=== PATIENT | female | born 1980 | race Caucasian/White ===

== ENCOUNTER 2025-01-12 00:54 | Day surgery (SDC) | payer BC, SELFPAY ==
[2024-12-28 11:07] VITALS: BMI 37.1
--- OUTSIDE RECORDS SUMMARY | 2025-01-12 00:57 | XMS_ITS | Clinical Summary ---
Author Organization [facility] Address [facility] [place] [address] Care Team Providers Care Compensation And Benefits Administrator Name Role Phone Kevin Clark MD Primary Care Provider Allergies No known active allergies Medications lisinopril 10 MG tablet Take 10 mg by mouth daily. 02/26/2021 Active Active Problems Problem Noted Date Diagnosed Date Closed nondisplaced fracture of intermediate cuneiform of right foot with routine healing, subsequent encounter 03/15/2021 Closed nondisplaced fracture of medial cuneiform of right foot with routine healing, subsequent encounter 03/15/2021 Resolved Problems Problem Noted Date Diagnosed Date Resolved Date Worried well 01/29/2017 05/04/2018 Encounter for preventive health examination 01/14/2010 05/04/2018 Immunizations Immunization Administration Dates Next Due Influenza Adult (Generic) 04/09/2018 Family History Medical History Relation Comments Hypertension Father Stroke Maternal Grandfather No Known Problems Maternal Grandmother Hypertension Mother Breast Cancer Paternal Aunt Cancer Paternal Grandfather Diabetes Paternal Grandmother Hypertension Sister 1 2 sisters Hypertension Sister 2 Relation Status Comments Father Alive Maternal Grandfather Maternal Grandmother Mother Alive Paternal Aunt Alive Paternal Grandfather Paternal Grandmother Sister 1 Alive Sister 2 Alive Social History Tobacco Use Types Packs/Day Years Used Date Smoking Tobacco: Former Cigarettes 0.3 2 Smokeless Tobacco: Never Tobacco Cessation:Counseling Given: Not Answered Alcohol Use Standard Drinks/Week Comments Yes 0 (1 standard drink = 0.6 oz pur e alcohol) OCCASIONAL AUDIT-C Answer Date Recorded Frequency of Alcohol Consumption Monthly or less 05/04/2018 Average Number of Drinks Not on file 018 Frequency of Binge Drinking Not on file 04/22 Comments No Sex and Gender Information Value Date Recorded Sex Assigned at Not on file Legal Sex Female 8:39 PM CDT Gender Identity Not on file Sexual Orientation Not on file Last Filed Vital Signs Vital Sign Reading Time Taken Comments Blood Pressure 126/85 10/19/2022 1:30 PM CDT Pulse 60 10/19/2022 1:30 PM CDT Temperature 36.8 C (98.3 F) 10/19/2022 11:42 AM CDT Respiratory Rate 19 10/19/2022 1:30 PM CDT Oxygen Saturation 99% 10/19/2022 1:30 PM CDT Inhaled Oxygen Concentration - - Weight 97.1 kg (214 lb) 10/19/2022 11:42 AM CDT Height 167.6 cm (5' 6) 10/19/2022 11:42 AM CDT Body Mass Index 34.54 10/19/2022 11:42 AM CDT Plan of Treatment Health Maintenance Due Date Last Done Comments Cervical Cancer Screening Pa p Smear (Age 30 to 64) Every 3 Years 1979 Colorectal Cancer Screening Colonoscopy (10 Years) 1979 Annual Physical 10/20/1982 Hepatitis C 10/20/1997 DTaP, Tdap and Td Vaccines ( 1 - Tdap) 10/20/1998 Hepatitis B Vaccines (1 of 3 - 19+ 3-dose series) 10/20/1998 HPV Vaccines (1 - 3-dose SCD M series) 10/20/2006 Cervical Cancer Screening Pa p with HPV Testing (Age 30 to 64) Every 5 Years 10/20/2009 Cervical Cancer Screening wi th HPV 10/20/2009 COVID-19 Vaccine (2023-2 5 season) 2024 Mammogram Screening 03/20/2024 03/20/2022, 03/23/2020 Meningococcal B Vaccine Aged Out No l onger eligible based on patient's age to complete this topic Meningococcal Vaccine Aged Out No dave caden eligible based on patient's age to complete this topic Pneumococcal Vaccine: Pediatrics (0 to 5 Years) and At-Risk Patients (6 to 49 Years) Aged Out No longer eligible b ased on patient's age to complete this topic RSV Immunizations Under 20 Months Aged Out No longer eligible b ased on patient's age to complete this topic Procedures Procedure Name Priority Date/Time Associated Diagnosis Comments MG SCREENING W JOYCE BASILIO DIGI Routine 03/20/2022 1:01 PM CDT Visit for screening mammogram from Last 3 Months or Most Recently Relevant to Health Maintenance Results * MG SCREENING W JOYCE BASILIO DIGI (03/20/2022 1:01 PM CDT) Anatomical Region Laterality Modality Breast Bilateral Mammography 03/20/2022 4:38 PM CDT Impressions 03/20/2022 4:39 PM CDT IMPRESSION: No suspicious change since 03/23/2020. Recommendation: 1: Routine Screening Bilateral in 1 Year Assessment: ACR BI-RADS 1 - NEGATIVE Ordered By: MARVIN BLAKELY Interpreted By: Geraldo Salazar MD, 03/20/2022 4:38 PM Narrative 03/20/2022 4:39 PM CDT Examination: Digital screening mammogram with CAD. Clinical history: Asymptomatic patient presents for routine screening. Comparison: 03/23/2020. Technique: Bilateral digital mammograms. The exam was interpreted with the use of a computer-aided detection (CAD) system. Additional 3-D tomosynthesis images were acquired. Tissue density: The breast tissue contains scattered fibroglandular densities. Findings: The breast tissue contains scattered fibroglandular densities. No suspicious mass, microcalcification or area of architectural distortion can be identified. From a mammographic standpoint, routine followup in one year would seem adequate. Marvin Blakely MD MAMMO Final Resu lt from Last 3 Months or Most Recently Relevant to Health Maintenance Insurance [facility] Care Teams Compensation And Benefits Administrator Relationship Specialty Start Date End Date Kevin Clark MD [address] [place] [address] [phone] PCP - General FAMILY PRACTICE 03/11/21
[2025-01-12 08:51] VITALS: BP 141/94; PULSE 103; RESP 16; TEMP 36.4; O2SAT 100; BMI 36.2
[2025-01-12] MEDS: LACTATED RINGERS 1,000 ML 150 ML IV CONT (09:09)
[2025-01-12] MEDS: SIMETHICONE ORAL SUSPENSION 20 MG/0.3 ML 30 ML BOTTLE 1.8 ML PO (09:12)
--- NOTE | 2025-01-12 09:34 | P.HP_ITS ---
H&P: HPI History of Present Illness Date/Time: 01/12/25 09:34 Chief Complaint: GERD -family history of colorectal cancer Narrative: the patient suffer from heartburn almost every night, partially controlled wi th famotidine 10 mg q.h.s.. She has never taken PPIs. There is no dysphagia. She admits to not be following a strict anti-reflux regimen. . In addition her mother had colorectal cancer in her 80s. Patient never had a colonoscopy or EGD. Review of Systems Review of Systems: All systems reviewed & are unremarkable except as noted in HPI and below [facility] Family History Family History (Updated 08/12/24 @ 13:40 by Earlene Craig MA) Mother Carcinoma of colon Social History Social History (Updated 08/12/24 @ 13:40 by Earlene Craig MA) Smoking status: Former smoker Tobacco type: cigarettes Substance use: current Substance use type: marijuana and other Other substance usage details: THC gummies & MJ Living arrangements: with family Spiritual care concerns: No Meds Home Medications and Allergies Home Medications ?Medication ?Instructions ?Recorded ?Confirmed ?Type atorvastatin 20 mg tablet (Lipitor) 20 mg PO DAILY 08/12/24 12/28/24 History lisinopril 10 mg tablet 10 mg PO DAILY 08/12/24 12/28/24 History famotidine 40 mg tablet See Rx Instructions .Route 12/19/24 12/28/24 Rx .COMPLEX #30 tabs ferrous sulfate 325 mg (65 mg 325 mg PO DAILY 12/28/24 12/28/24 History iron) tablet (Bo-Time) Allergies Allergy/AdvReac Type Severity Reaction Status Date / Time No Known Allergies Allergy Verified 01/12/25 08:49 Vital Signs Vital Signs - 24 hr 01/12/25 08:51 Temperature 97.5 F L Pulse Rate 103 H Respiratory Rate 16 Blood Pressure 141/94 H Pulse Oximetry 100 Oxygen Delivery Room Air Exam Const: General: cooperative and healthy appearing Resp: Effort & Inspection: normal respiratory effort and able to speak in complete sentences Auscultation: clear to auscultation bilaterally Cardio: Rate: regular rate Rhythm: regular rhythm GI: Inspection: normal to inspection GI Palp: No No hepatosplenomegaly present Auscultation: normal bowel sounds Rectal Exam: deferred Skin: General skin exam: normal color Psych: Appearance: grossly normal Mental Status: mental status grossly normal Assessment and Plan Assessment and plan (1) GERD (gastroesophageal reflux disease): Qualifiers: Esophagitis presence: esophagitis presence not specified Qualified Code(s): K21.9 - Gastro-esophageal reflux disease without esophagitis Code(s): K21.9 - Gastro-esophageal reflux disease without esophagitis Status: Acute Assessment and Plan: The patient is deemed a good candidate for the procedures. Consent signed. Will proceed. (2) Family history of colon cancer: Code(s): Z80.0 - Family history of malignant neoplasm of digestive organs Status: Acute
--- NOTE | 2025-01-12 09:47 | WPDANESEPPF ---
Anes - Initial Pre Proc Eval Procedure: Operation Date: 01/12/25 10:00 Proposed Procedures p Esophagogastroduodenoscopy & Colonoscopy - Moustapha Miranda MD Date/Time: 01/12/25 09:47 Surgeon: Moustapha Miranda MD Pre Op Diagnosis: Gastro-esophageal reflux disease without esophagit Patient Data Age: 44 Gender: F Height: 1.68 m Weight: 101.9 kg Last Vital Signs Temp 97.5 F L 01/12/25 08:51 Pulse 103 H 01/12/25 08:51 Resp 16 01/12/25 08:51 BP 141/94 H 01/12/25 08:51 Pulse Ox 100 01/12/25 08:51 O2 Del Method Room Air 01/12/25 08:51 Allergies Allergy/AdvReac Type Severity Reaction Status Date / Time No Known Allergies Allergy Verified 01/12/25 08:49 Home Medications ?Medication ?Instructions ?Recorded ?Confirmed ?Type atorvastatin 20 mg tablet (Lipitor) 20 mg PO DAILY 08/12/24 12/28/24 History lisinopril 10 mg tablet 10 mg PO DAILY 08/12/24 12/28/24 History famotidine 40 mg tablet See Rx Instructions .Route 12/19/24 12/28/24 Rx .COMPLEX #30 tabs ferrous sulfate 325 mg (65 mg 325 mg PO DAILY 12/28/24 12/28/24 History iron) tablet (Bo-Time) Laboratory Tests 01/12/25 09:00 Beta HCG, Quant Pending Patient hx anesthesia problems: none Family hx anesthesia problems: none Results Review: All pre-operative results and documents have been reviewed as part of the pre-operative evaluation. COUNTS INCLUDE 234 BEDS AT THE [facility] Family History Family History Mother Carcinoma of colon Social History Social History Smoking status: Former smoker Tobacco type: cigarettes Substance use: current Substance use type: marijuana and other Other substance usage details: THC gummies & MJ Living arrangements: with family Spiritual care concerns: No Anes - Eval Final PreProcedure Day of Procedure 01/12/25 09:47 Patient weight: overweight Lungs: normal air movement Airway: Mallampati scale class II and special considerations (Missing lower tooth. ) Neurological: alert and oriented Last oral intake: >/= 8 hours ASA classification: III Emergent: no Anesthetic plan: proceed Anesthesia type and monitoring: general GIVS and standard monitoring Results Review: All pre-operative results and documents have been reviewed as part of the pre-operative evaluation. HTN, hyperlipidemia, cannabis smoker 2 x weekly. Informed Consent: The patient's anesthetic plan and its attendant risks and benefits were discussed with the patient/family/POA. Questions were solicited and answers provided to the satisfaction of the patient/family/POA.
[2025-01-12 09:48] LABS: BEDSIDEPREGUCG Negative (Negative)
[2025-01-12 09:56] LABS: Beta HCG Quantitative < 2.39 mIU/ML
--- NOTE | 2025-01-12 09:59 | S_PTH ---
PATIENT: Cesia Cano LOC: [facility] #:[id number] AGE/SX: 44/F ROOM: RE01/12/[address]: Moustapha Miranda MD : 1980 BED: DIS: 01/12/2025 SPEC #: [id number] RECD: 01/12/25 11:47 STATUS: MYLES REQ #: [id number] AMBER: 01/12/25 09:[address]: Moustapha Miranda DEPT: [facility] Surgical RECD BY: Jennifer Lane ENTERED: 01/12/25 11:48 SP TYPE: Surgical OTHR DR: Too Chicas, PA-C Tissues: A - Gastric Biopsy B - Gastric Biopsy Procedures: Hematoxylin and Eosin Stain Gross and Microscopic Level 4
--- NOTE | 2025-01-12 10:10 | SUR.OPER ---
EGD: [id number] COLON: Start 1002
[2025-01-12 10:20] VITALS: BP 138/79; PULSE 70; RESP 18; O2SAT 100
[2025-01-12 10:30] VITALS: BP 137/88; PULSE 69; RESP 17; O2SAT 100
[2025-01-12 10:40] VITALS: BP 145/90; PULSE 67; RESP 18; O2SAT 100
== END 2025-01-12 10:55 | disposition home or self-care (01) ==
PROVIDERS: Anesthesiology; PCP Physician Assistant; Visit Provider Internal Medicine Gastroenterology
PROC: 0DJ08ZZ Inspection of Upper Intestinal Tract, Via Natural or Artificial Opening Endoscopic (ICD-10-PCS; CPT 45378; principal; 2025-01-12 10:00)
DX: Z12.11 Encounter for screening for malignant neoplasm of colon (principal); K21.9 Gastro-esophageal reflux disease without esophagitis; E78.5 Hyperlipidemia, unspecified; I10 Essential (primary) hypertension; F12.90 Cannabis use, unspecified, uncomplicated; Z87.891 Personal history of nicotine dependence; Z80.0 Family history of malignant neoplasm of digestive organs
CPT/HCPCS: 43239; 45378; 36415; 84702; 88305; J2003; J2704; J7120